=== PATIENT | female | born 1940 | race Hispanic/Latino ===

== ENCOUNTER 2025-05-30 11:56 | Inpatient (IN) | payer MEDICARE ==
[~2025-05-30] VITALS: Ht 160 cm; Wt 56.7 kg
[2025-05-30 13:15] LABS: BASOPHILS % 0.7 % (0.0-1.0); EOSINOPHILS % 2.1 % (0.0-6.0); LYMPHOCYTES % 24.0 % (18.0-39.1); MONOCYTES % 6.0 % (4.4-11.3); NEUTROPHILS % 66.2 % (38.7-80.0); RED CELL DISTRIBUTION WIDTH 13.6 % (11.7-14.4)
[2025-05-30 13:35] LABS: INR 0.98
[2025-05-30] MEDS: SODIUM CHLORIDE 0.9% 1000ML 1,000 ML IV STA (13:38)
[2025-05-30] MEDS: INSULIN REGULAR, HUMAN 100 UNIT/1 ML IV ONE (13:38)
[2025-05-30 13:47] VITALS: TEMP 98.3
[2025-05-30 13:50] LABS: EPITHELIAL CELLS,URINE MODERATE /LPF; LEUKOCYTE ESTERASE ,URINE TRACE (NEGATIVE); PROTEIN,URINE DIPSTICK NEGATIVE (NEGATIVE); URINE UROBILINOGEN 0.2 mg/dL (0.2 - 1)
[2025-05-30 13:53] LABS: EST GLOMERULAR FILTRATION RATE 69.0 ML/MIN (>=60)
[2025-05-30] MEDS ORDERED: ONDANSETRON HCL INJ 2MG/ML 2ML 2 MG/ML VIAL IV PRN (14:30)
[2025-05-30 15:41] VITALS: PULSE 86; RESP 16
[2025-05-30] MEDS: SODIUM CHLORIDE 0.9% 1000ML 1,000 ML IV SCH (15:41)
[2025-05-30] MEDS: INSULIN GLARGINE 100 UNITS/ML VIAL SQ ONE (15:42)
[2025-05-30 16:00] VITALS: BP 123/57; PULSE 83; RESP 17; TEMP 97.9; O2SAT 100
[2025-05-30] MEDS ORDERED: PANTOPRAZOLE SO40 MG PO (16:17)
[2025-05-30 16:21] VITALS: BP 123/57; PULSE 83; RESP 17; TEMP 97.9; O2SAT 100
[2025-05-30] MEDS ORDERED: ALBUTEROL/IPRATROPIUM 3 ML NEB NEB PRN (17:00)
[2025-05-30] MEDS ORDERED: DOCUSATE SODIUM 100 MG CAP PO PRN (17:00)
[2025-05-30] MEDS ORDERED: DIPHENHYDRAMINE HCL 25 MG CAP PO PRN (17:00)
[2025-05-30] MEDS ORDERED: HYDRALAZINE HCL 20 MG/ML VIAL IV PRN (17:00)
[2025-05-30] MEDS ORDERED: BENZONATATE 100 MG CAP PO PRN (17:00)
[2025-05-30] MEDS ORDERED: SIMETHICONE 80 MG CHEW PO PRN (17:00)
[2025-05-30] MEDS ORDERED: DEXTROSE 50% SYRINGE 50 ML IV PRN ×2 (17:00)
[2025-05-30] MEDS: ENOXAPARIN SOD INJ 40 MG/0.4 ML SYR SC SCH (17:31)
[2025-05-30] MEDS: BISACODYL 10 MG SUPP PR PRN (17:52)
[2025-05-30 20:00] VITALS: BP 160/81; PULSE 110; RESP 20; TEMP 98.1; O2SAT 99
[2025-05-30] MEDS: INSULIN LISPRO 100 UNIT/1 ML 3ML VIAL SQ SCH (21:00)
[2025-05-30 21:10] VITALS: PULSE 95; RESP 18; O2SAT 99
[2025-05-30] MEDS: MINERAL OIL 132 ML BTL PR ONE (21:13)
[2025-05-31] VITALS (12 sets, daily range): BP systolic 125–148; BP diastolic 52–78; PULSE 75–114; RESP 16–20; TEMP 97.5–98.4; O2SAT 96–99
[2025-05-31 05:43] LABS: BASOPHILS % 0.6 % (0.0-1.0); EOSINOPHILS % 3.2 % (0.0-6.0); LYMPHOCYTES % 30.3 % (18.0-39.1); MONOCYTES % 10.0 % (4.4-11.3); NEUTROPHILS % 55.3 % (38.7-80.0); RED CELL DISTRIBUTION WIDTH 13.2 % (11.7-14.4)
[2025-05-31 06:23] LABS: EST GLOMERULAR FILTRATION RATE 88.0 ML/MIN (>=60)
[2025-05-31 06:57] LABS: CHOL/HDL RATIO 6.8 (3.0-3.6); LDL CHOLESTEROL 133.0 MG/DL (60-130); PHOSPHORUS 2.1 MG/DL (2.3-4.7)
[2025-05-31] MEDS: PANTOPRAZOLE SOD 40 MG TABEC PO SCH (08:44)
[2025-05-31] MEDS: INSULIN GLARGINE 100 UNITS/ML VIAL SQ SCH (13:17)
[2025-05-31] MEDS: POTASSIUM PHOSPHATE 15 MM in SODIUM CHLORIDE 0.9% 250ML 250 ML IV ONE (15:08)
[2025-05-31] MEDS: MINERAL OIL 132 ML BTL PR ONE (16:40)
[2025-05-31] MEDS: LACTULOSE SYRUP 20 GM/30 ML UDC PO SCH (16:41)
[2025-05-31] MEDS: DOCUSATE SODIUM 100 MG CAP PO ONE (18:37)
[2025-05-31] MEDS: CITRATE OF MAGNESIA 300ML BOTTLE PO ONE (18:37)
[2025-05-31] MEDS: MELATONIN 5 MG TABLET PO PRN (21:21)
[2025-05-31] MEDS: ATORVASTATIN 40 MG TAB PO SCH (21:21)
[2025-06-01] VITALS (9 sets, daily range): BP systolic 134–152; BP diastolic 67–83; PULSE 72–108; RESP 17–20; TEMP 97.1–98.6; O2SAT 98–100
[2025-06-01 05:45] LABS: BASOPHILS % 0.7 % (0.0-1.0); EOSINOPHILS % 5.6 % (0.0-6.0); LYMPHOCYTES % 30.4 % (18.0-39.1); MONOCYTES % 10.8 % (4.4-11.3); NEUTROPHILS % 51.6 % (38.7-80.0); RED CELL DISTRIBUTION WIDTH 13.2 % (11.7-14.4)
[2025-06-01 06:13] LABS: EST GLOMERULAR FILTRATION RATE 87.0 ML/MIN (>=60)
[2025-06-01] MEDS: POTASSIUM CHLORIDE 20 MEQ TAB CR PO PRN (20:52)
[2025-06-02] VITALS (9 sets, daily range): BP systolic 125–159; BP diastolic 63–79; PULSE 79–103; RESP 17–19; TEMP 97.5–98.6; O2SAT 94–100
[2025-06-02] MEDS: KETOROLAC TROMETHAMINE 30 MG/ML VIAL IV SCH (14:48)
[2025-06-02] MEDS: INSULIN LISPRO 100 UNIT/1 ML 3ML VIAL SQ SCH (17:06)
[2025-06-02] MEDS: INSULIN GLARGINE 100 UNITS/ML VIAL SQ SCH (21:09)
[2025-06-03] VITALS (9 sets, daily range): BP systolic 115–150; BP diastolic 64–81; PULSE 78–97; RESP 18–19; TEMP 97.3–98.6; O2SAT 96–100
[2025-06-03 06:52] LABS: BASOPHILS % 0.8 % (0.0-1.0); EOSINOPHILS % 7.4 % (0.0-6.0); LYMPHOCYTES % 22.5 % (18.0-39.1); MONOCYTES % 10.7 % (4.4-11.3); NEUTROPHILS % 57.8 % (38.7-80.0); RED CELL DISTRIBUTION WIDTH 13.4 % (11.7-14.4)
[2025-06-03 07:14] LABS: EST GLOMERULAR FILTRATION RATE 89.0 ML/MIN (>=60)
[2025-06-03] MEDS: ACETAMINOPHEN 325 MG TAB PO PRN (12:20)
[2025-06-04 06:21] VITALS: PULSE 75; RESP 20; O2SAT 96
== END 2025-06-03 21:21 | DRG 638 ==
LOC: ER 12:16 → ERHOLD 14:24 → MED/SURG3 16:10
PROVIDERS: ADMIT Internal Medicine; ATTEND Internal Medicine
DX: E11.10 Type 2 diabetes mellitus with ketoacidosis without coma (principal); N17.9 Acute kidney failure, unspecified; N39.0 Urinary tract infection, site not specified; Z79.4 Long term (current) use of insulin; E86.0 Dehydration; K59.00 Constipation, unspecified; I10 Essential (primary) hypertension; R53.1 Weakness; E78.5 Hyperlipidemia, unspecified; K21.9 Gastro-esophageal reflux disease without esophagitis; F03.90 Unspecified dementia, unspecified severity, without behavioral disturbance, psychotic disturbance, mood disturbance, and anxiety; W19.XXXA Unspecified fall, initial encounter; Y92.009 Unspecified place in unspecified non-institutional (private) residence as the place of occurrence of the external cause; R29.6 Repeated falls; Z91.81 History of falling; Z91.148 Patient's other noncompliance with medication regimen for other reason; Z60.2 Problems related to living alone; Z71.81 Spiritual or religious counseling; Z79.899 Other long term (current) drug therapy
CPT/HCPCS: 36415; 70450; 71045; 72125; 80048; 80053; 80061; 81001; 82550; 82607; 82746; 82948; 83036; 83735; 84100; 84439; 84443; 84484; 85025; 85610; 85730; 87086; 93005; 93306; 93880; 94799; 96372; 99284; J0696; J1650; J1815; J1885; J2470; J7030; J7050